=== PATIENT | female | born 1995 | race Caucasian/White ===

== ENCOUNTER 2021-08-30 16:59 | Emergency (ER) | payer OTHER ==
[~2021-08-30] VITALS: Ht 157.5 cm; Wt 109.0 kg
[2021-08-30 18:10] LABS: BASOPHILS % 0.2 % (0.0-2.0); EOSINOPHILS % 1.2 % (0.0-5.0); HEMOGLOBIN. 13.4 g/dL (12.0-16.0); LYMPHOCYTES % 22.8 % (20.0-50.0); MEAN CORPUSCULAR HEMOGLOBIN 28.5 pg (28.0-32.0); MEAN CORPUSCULAR VOLUME 87.1 fL (81.0-99.0); MEAN PLATELET VOLUME 10.8 fl (7.4-10.4); MONOCYTES % 7.9 % (2.0-8.0); NEUTROPHILS % 67.9 % (40.0-76.0); PLATELET 179 x1000/uL (130-400); RED BLOOD CELL COUNT 4.71 mill/uL (4.2-5.4); RED CELL DISTRIBUTION WIDTH 13.9 % (11.6-14.6)
[2021-08-30 18:12] LABS: CHLORIDE 109 mEq/L (98-107)
[2021-08-30 18:40] LABS: B-HCG QUANTITATIVE 70086 mIU/mL (<3)
[2021-08-30] MEDS ORDERED: ONDANSETRON HCL 4MG/2ML INJ IV ONE (19:15)
[2021-08-30] MEDS ORDERED: SODIUM CHLORIDE 0.9% 1,000 ML IV ONE (19:15)
[2021-08-30 20:05] LABS: CLARITY URINE CLEAR (CLEAR); COLOR URINE YELLOW (YELLOW); KETONES URINE TRACE (NEGATIVE); LEUKOCYTE ESTERASE URINE 1+ (NEGATIVE); NITRITE URINE NEGATIVE (NEGATIVE); OCCULT BLOOD URINE NEGATIVE (NEGATIVE); PH URINE 5.5 (4.5-8.0); PROTEIN URINE NEGATIVE (NEGATIVE); SPECIFIC GRAVITY URINE 1.015 (1.005-1.030); UROBILINOGEN URINE 0.2 E.U./dL (0.2-1.0)
[2021-08-30] MEDS ORDERED: ONDA4TAB5 MT (21:43)
[2021-08-30] MEDS ORDERED: NITR-87 MT (21:43)
[2021-08-30 23:38] VITALS: BP 135/77
== END 2021-08-30 23:42 | disposition home or self-care (01) ==
LOC: ER 17:07
DX: O26.891 Other specified pregnancy related conditions, first trimester (principal); O21.0 Mild hyperemesis gravidarum; O23.11 Infections of bladder in pregnancy, first trimester; Z3A.01 Less than 8 weeks gestation of pregnancy
CPT/HCPCS: 36415; 76801; 76817; 80053; 81003; 81025; 83690; 84702; 85025; 96361; 96374; 99284; J2405; J7030; Z7610

== ENCOUNTER 2022-02-25 19:02 | Observation (INO) | payer MEDICAID, OTHER ==
[~2022-02-25] VITALS: Ht 157.5 cm; Wt 104.3 kg
[~2022-02-25 19:02] MED LIST: NITR-87 MT; ONDA4TAB5 MT
[2022-02-25] MEDS ORDERED: LACTATED RINGERS 1,000 ML IV SCH (20:00)
[2022-02-25] MEDS ORDERED: LACTATED RINGERS 1,000 ML IV ONE (20:00)
[2022-02-25 20:01] LABS: CLARITY URINE CLEAR (CLEAR); COLOR URINE DARK YELLOW (YELLOW); KETONES URINE TRACE (NEGATIVE); LEUKOCYTE ESTERASE URINE 1+ (NEGATIVE); NITRITE URINE NEGATIVE (NEGATIVE); OCCULT BLOOD URINE NEGATIVE (NEGATIVE); PH URINE 5.5 (4.5-8.0); PROTEIN URINE TRACE (NEGATIVE); SPECIFIC GRAVITY URINE 1.028 (1.005-1.030)
[2022-02-25] MEDS ORDERED: PREN-176 PO (20:23)
[2022-02-25] MEDS ORDERED: FERR325T6 PO (20:23)
== END 2022-02-25 21:40 | disposition home or self-care (01) ==
LOC: 8 EST LDRP 19:02
PROVIDERS: ADMIT Obstetrics & Gynecology; ATTEND Obstetrics & Gynecology
DX: O26.893 Other specified pregnancy related conditions, third trimester (principal); R10.30 Lower abdominal pain, unspecified; Z3A.33 33 weeks gestation of pregnancy
CPT/HCPCS: 59025; 76805; 76818; 81003; 96360; 96361; G0378; 99281

== ENCOUNTER 2022-04-03 11:43 | Observation (INO) | payer MEDICAID ==
[~2022-04-03] VITALS: Ht 157.5 cm; Wt 124.0 kg
[~2022-04-03 11:43] MED LIST changes: +FERR325T6 PO; -NITR-87 MT; -ONDA4TAB5 MT; +PREN-176 PO
[2022-04-03 11:48] VITALS: BP 136/93
[2022-04-03 13:22] LABS: BASOPHILS % 0.2 % (0.0-2.0); EOSINOPHILS % 0.6 % (0.0-5.0); HEMATOCRIT. 39.5 % (36.0-48.0); HEMOGLOBIN. 13.2 g/dL (12.0-16.0); LYMPHOCYTES % 23.5 % (20.0-50.0); MEAN CORPUSCULAR HEMOGLOBIN 28.7 pg (28.0-32.0); MEAN CORPUSCULAR VOLUME 86.1 fL (81.0-99.0); MEAN PLATELET VOLUME 11.1 fl (7.4-10.4); MONOCYTES % 5.7 % (2.0-8.0); PLATELET 142 x1000/uL (130-400); RED BLOOD CELL COUNT 4.58 mill/uL (4.2-5.4)
[2022-04-03 16:08] LABS: CHLORIDE 107 mEq/L (98-107)
[2022-04-03 16:33] LABS: B-HCG QUANTITATIVE 21009 mIU/mL (<3)
== END 2022-04-03 14:30 | disposition home or self-care (01) ==
LOC: ER 11:51 → 8 EST LDRP 13:25
PROVIDERS: ADMIT Obstetrics & Gynecology; ATTEND Obstetrics & Gynecology
DX: O62.9 Abnormality of forces of labor, unspecified (principal); O42.92 Full-term premature rupture of membranes, unspecified as to length of time between rupture and onset of labor; Z3A.39 39 weeks gestation of pregnancy; Z79.899 Other long term (current) drug therapy
CPT/HCPCS: 36415; 59025; 76805; 80053; 84702; 85025; 99281; 99284; G0378

== ENCOUNTER 2022-04-09 07:18 | Inpatient (IN) | payer MEDICAID ==
[~2022-04-09] VITALS: Ht 157.5 cm; Wt 114.3 kg
[2022-04-09] MEDS ORDERED: LACTATED RINGERS 1,000 ML IV SCH (08:00)
[2022-04-09] MEDS ORDERED: NALOXONE HCL 0.4 MG/ML 1ML VIAL IM PRN (08:15)
[2022-04-09] MEDS ORDERED: LIDOCAINE HCL 1% 20ML VIAL (Pyxis) INJ INFIL SCH (08:15)
[2022-04-09] MEDS ORDERED: CARBOPROST TROMETHAMINE 250 MCG/ML AMPUL IM PRN (08:15)
[2022-04-09] MEDS ORDERED: METHYLERGONOVINE MALEATE 0.2 MG/ML IM PRN (08:15)
[2022-04-09] MEDS ORDERED: PENICILLIN G POTASSIUM 5 MMU in DEXT 5% WATER 100 ML IV SCH (08:30)
[2022-04-09] MEDS: MISOPROSTOL 100MCG TABLET VG SCH ×3 (09:57→23:28)
[2022-04-09 10:23] LABS: BASOPHILS % 0.2 % (0.0-2.0); EOSINOPHILS % 0.4 % (0.0-5.0); HEMATOCRIT. 38.1 % (36.0-48.0); HEMOGLOBIN. 12.5 g/dL (12.0-16.0); LYMPHOCYTES % 24.8 % (20.0-50.0); MEAN CORPUSCULAR VOLUME 85.2 fL (81.0-99.0); MEAN PLATELET VOLUME 11.4 fl (7.4-10.4); MONOCYTES % 6.3 % (2.0-8.0); NEUTROPHILS % 68.3 % (40.0-76.0); PLATELET 144 x1000/uL (130-400); RED BLOOD CELL COUNT 4.47 mill/uL (4.2-5.4); RED CELL DISTRIBUTION WIDTH 16.9 % (11.6-14.6)
[2022-04-09 10:54] LABS: CLARITY URINE CLOUDY (CLEAR); COLOR URINE DARK YELLOW (YELLOW); KETONES URINE 1+ (NEGATIVE); LEUKOCYTE ESTERASE URINE NEGATIVE (NEGATIVE); NITRITE URINE NEGATIVE (NEGATIVE); OCCULT BLOOD URINE NEGATIVE (NEGATIVE); PROTEIN URINE 1+ (NEGATIVE); SPECIFIC GRAVITY URINE 1.025 (1.005-1.030)
[2022-04-09 10:55] LABS: D-DIMER 1.4 mg/L FEU (<0.50); INR 0.9; PARTIAL THROMBOPLASTIN TIME 30.1 sec (23.4-31.0); PROTHROMBIN TIME 9.8 sec (9.6-11.0)
[2022-04-09 11:12] LABS: CHLORIDE 109 mEq/L (98-107)
[2022-04-09 12:57] LABS: *AMPHETAMINES SCREEN URINE NEGATIVE (NEGATIVE); *BARBITURATES SCREEN URINE NEGATIVE (NEGATIVE); *BENZODIAZEPINES SCREEN URINE NEGATIVE (NEGATIVE); *COCAINE SCREEN URINE NEGATIVE (NEGATIVE); CANNABINOID URINE SCREEN NEGATIVE (NEGATIVE); METHADONE URINE SCREEN NEGATIVE (NEGATIVE); OPIATES URINE SCREEN NEGATIVE (NEGATIVE); PHENCYCLIDINE URINE SCREEN NEGATIVE (NEGATIVE)
[2022-04-09] MEDS: LACTATED RINGERS 1,000 ML IV SCH ×4 (14:04→21:52)
[2022-04-09] MEDS ORDERED: ROPIVACAINE HCL/PF EPIDURAL 200 ML EPI NR (15:30)
[2022-04-09] MEDS: OXYTOCIN 30 UNITS/500ML NS PMX 500 ML IV SCH (16:18)
[2022-04-09] MEDS: BUTORPHANOL TARTRATE 2 MG/ML VIAL IV PRN ×2 (17:25→19:41)
[2022-04-09] MEDS: PENICILLIN G POTASSIUM 2.5 MMU in DEXTROSE 5% WATER 50 ML IV SCH ×2 (20:12→23:28)
[2022-04-09] MEDS ORDERED: BUPIVACAINE HCL/PF 0.25% (2.5MG/ML) 10ML ONE (20:41)
[2022-04-09] MEDS ORDERED: ROPIVACAINE HCL/PF EPIDURAL 200 ML EPI ONE (20:41)
[2022-04-09] MEDS ORDERED: FENTANYL CITRATE/PF 50MCG/ML 2ML VIAL ONE (20:41)
[2022-04-10] MEDS ORDERED: ONDANSETRON HCL 4MG/2ML INJ IV ONE (03:15)
[2022-04-10] MEDS: OXYTOCIN 30 UNITS/500ML NS PMX 500 ML IV SCH ×2 (04:13→04:28)
[2022-04-10] MEDS ORDERED: OXYTOCIN 30 UNITS/500ML NS PMX 500 ML IV SCH (04:15)
[2022-04-10] MEDS ORDERED: LANOLIN OINT 7GM TUBE TOP PRN (04:15)
[2022-04-10] MEDS ORDERED: IBUPROFEN 400MG TABLET PO PRN (04:15)
[2022-04-10] MEDS ORDERED: RHO(D) IMMUNE GLOBULIN 300 MCG/SYR IM PRN (04:15)
[2022-04-10] MEDS ORDERED: DIPHENHYDRAMINE 25MG CAPSULE PO PRN (04:15)
[2022-04-10] MEDS: IBUPROFEN 800MG TABLET PO PRN ×2 (05:19→20:20)
[2022-04-10 05:55] VITALS: BP 121/68
[2022-04-10 08:00] VITALS: BP 115/62
[2022-04-10] MEDS: PRENATAL VIT/FE FUMARATE/FA TABLET PO SCH (15:02)
[2022-04-10 16:00] VITALS: BP 113/68
[2022-04-10 20:00] VITALS: BP 113/64
[2022-04-11 04:00] VITALS: BP 109/58
[2022-04-11 08:00] VITALS: BP 131/87
[2022-04-11 08:05] LABS: BASOPHILS % 0.3 % (0.0-2.0); EOSINOPHILS % 0.4 % (0.0-5.0); HEMATOCRIT. 28.7 % (36.0-48.0); HEMOGLOBIN. 9.4 g/dL (12.0-16.0); LYMPHOCYTES % 26.8 % (20.0-50.0); MEAN CORPUSCULAR HEMOGLOBIN 28.3 pg (28.0-32.0); MEAN CORPUSCULAR VOLUME 86.8 fL (81.0-99.0); MEAN PLATELET VOLUME 11.4 fl (7.4-10.4); MONOCYTES % 5.6 % (2.0-8.0); NEUTROPHILS % 66.9 % (40.0-76.0); PLATELET 135 x1000/uL (130-400); RED BLOOD CELL COUNT 3.31 mill/uL (4.2-5.4); RED CELL DISTRIBUTION WIDTH 17.3 % (11.6-14.6)
[2022-04-11] MEDS ORDERED: NORE0.3520 MT (08:40)
[2022-04-11] MEDS ORDERED: IBUP-2030 PO (08:40)
[2022-04-11] MEDS: PRENATAL VIT/FE FUMARATE/FA TABLET PO SCH (08:45)
[2022-04-11 14:15] LABS: HEPATITIS B SURFACE ANTIGEN NEGATIVE
== END 2022-04-11 11:45 | disposition home or self-care (01) | DRG 560 ==
LOC: 8 EST LDRP 07:18 → OBSVTOIN 07:55 → 8EST 04-10 05:18
PROVIDERS: ADMIT Obstetrics & Gynecology; ATTEND Obstetrics & Gynecology
PROC: 10E0XZZ Delivery of Products of Conception, External Approach (ICD-10-PCS; principal; 2022-04-10)
PROC: 3E0R3BZ Introduction of Anesthetic Agent into Spinal Canal, Percutaneous Approach (ICD-10-PCS; 2022-04-10)
PROC: 00HU33Z Insertion of Infusion Device into Spinal Canal, Percutaneous Approach (ICD-10-PCS; 2022-04-10)
DX: O99.02 Anemia complicating childbirth (principal); Z37.0 Single live birth; Z20.822 Contact with and (suspected) exposure to COVID-19; Z3A.39 39 weeks gestation of pregnancy
CPT/HCPCS: 36415; 80053; 80305; 81003; 84550; 85025; 85379; 85384; 86592; 86703; 86762; 86850; 86900; 87340; 87426; 99281; G0378; J0595; J2540; J2795; J3010; J3490; J7060; J7120; A4315; J2590

== ENCOUNTER 2022-05-02 13:32 | Emergency (ER) | payer MEDICAID ==
[~2022-05-02] VITALS: Ht 157.5 cm; Wt 92.0 kg
[~2022-05-02 13:32] MED LIST changes: +IBUP-2030 PO; +NORE0.3520 MT
[2022-05-02 13:47] VITALS: BP 154/97
[2022-05-02 15:34] LABS: BASOPHILS % 0.5 % (0.0-2.0); EOSINOPHILS % 1.6 % (0.0-5.0); HEMATOCRIT. 34.3 % (36.0-48.0); HEMOGLOBIN. 11.3 g/dL (12.0-16.0); LYMPHOCYTES % 26.9 % (20.0-50.0); MEAN CORPUSCULAR HEMOGLOBIN 27.7 pg (28.0-32.0); MEAN CORPUSCULAR VOLUME 84.1 fL (81.0-99.0); MEAN PLATELET VOLUME 11.5 fl (7.4-10.4); MONOCYTES % 6.7 % (2.0-8.0); NEUTROPHILS % 64.3 % (40.0-76.0); PLATELET 177 x1000/uL (130-400); RED BLOOD CELL COUNT 4.08 mill/uL (4.2-5.4); RED CELL DISTRIBUTION WIDTH 15.8 % (11.6-14.6)
[2022-05-02 15:47] LABS: CHLORIDE 108 mEq/L (98-107)
[2022-05-02 15:57] LABS: B-HCG QUANTITATIVE 3 mIU/mL (<3)
[2022-05-02 16:30] LABS: CLARITY URINE CLOUDY (CLEAR); COLOR URINE RED (YELLOW); KETONES URINE NEGATIVE (NEGATIVE); LEUKOCYTE ESTERASE URINE 2+ (NEGATIVE); NITRITE URINE NEGATIVE (NEGATIVE); OCCULT BLOOD URINE 3+ (NEGATIVE); PROTEIN URINE 1+ (NEGATIVE); SPECIFIC GRAVITY URINE 1.015 (1.005-1.030); UROBILINOGEN URINE 0.2 E.U./dL (0.2-1.0)
[2022-05-02] MEDS ORDERED: MISOPROSTOL 200MCG TABLET PO ONE (17:15)
[2022-05-02] MEDS ORDERED: NITR-87 MT (18:07)
== END 2022-05-02 18:21 | disposition home or self-care (01) ==
LOC: ER 13:32
DX: O72.1 Other immediate postpartum hemorrhage (principal); N39.0 Urinary tract infection, site not specified; D64.9 Anemia, unspecified
CPT/HCPCS: 36415; 76830; 76856; 80053; 81003; 81025; 84702; 85025; 86850; 86900; 99284

== ENCOUNTER 2024-01-22 23:14 | Emergency (ER) | payer MEDICAID ==
[~2024-01-22] VITALS: Ht 157.5 cm; Wt 91.0 kg
[~2024-01-22 23:14] MED LIST changes: +NITR-87 MT
[2024-01-22 23:16] VITALS: O2SAT 100
[2024-01-23] VITALS: TEMP 36.89184
[2024-01-23] MEDS: ONDANSETRON HCL 4MG/2ML INJ IV STA (00:19)
[2024-01-23] MEDS: MORPHINE SULFATE 4 MG/ML INJ (FOR IV/IM USE) IV STA (00:20)
[2024-01-23] MEDS ORDERED: NAPR-1176 MT (01:59)
[2024-01-23 02:59] VITALS: BP 124/61; PULSE 90; RESP 18; O2SAT 99
== END 2024-01-23 03:02 | disposition home or self-care (01) ==
LOC: ER 23:14
DX: S93.402A Sprain of unspecified ligament of left ankle, initial encounter (principal); Z79.899 Other long term (current) drug therapy; W18.42XS Slipping, tripping and stumbling without falling due to stepping into hole or opening, sequela; Y93.89 Activity, other specified; Y92.89 Other specified places as the place of occurrence of the external cause; Y99.8 Other external cause status
CPT/HCPCS: 73590; 73600; 99285; 96374; 96375; J2405; J2270; Z7610 ×2; 99284

== ENCOUNTER 2024-11-26 10:11 | Emergency (ER) | payer MEDICAID, OTHER ==
[~2024-11-26] VITALS: Ht 157.5 cm; Wt 113.3 kg
[~2024-11-26 10:11] MED LIST changes: +NAPR-1176 MT
[2024-11-26 10:17] VITALS: O2SAT 98
[2024-11-26 10:46] LABS: BASOPHILS % 0.2 % (0.0-2.0); EOSINOPHILS % 2.0 % (0.0-5.0); HEMATOCRIT. 41.4 % (36.0-48.0); HEMOGLOBIN. 13.6 g/dL (12.0-16.0); LYMPHOCYTES % 22.5 % (20.0-50.0); MEAN PLATELET VOLUME 11.1 fl (7.4-10.4); MONOCYTES % 5.8 % (2.0-8.0); NEUTROPHILS % 69.5 % (40.0-76.0); PLATELET 171 x1000/uL (130-400); RED BLOOD CELL COUNT 4.83 mill/uL (4.2-5.4); RED CELL DISTRIBUTION WIDTH 14.1 % (11.6-14.6)
[2024-11-26 10:58] LABS: CREATININE 0.6 mg/dL (0.6-1.0)
[2024-11-26 10:59] LABS: HCG SCREEN NEGATIVE; UREA NITROGEN BLOOD 8 mg/dL (9-23)
[2024-11-26 11:00] LABS: ASPARTATE AMINOTRANSFERASE 35 IU/L (<34)
[2024-11-26 11:01] LABS: BILIRUBIN DIRECT 0.1 mg/dL (<=3.0); BILIRUBIN TOTAL 0.5 mg/dL (0.1-1.0); PROTEIN TOTAL 7.2 g/dL (6.0-8.3)
[2024-11-26] MEDS: ONDANSETRON HCL 4MG/2ML INJ IV ONE (11:22)
[2024-11-26] MEDS: SODIUM CHLORIDE 0.9% 1,000 ML IV ONE (11:22)
[2024-11-26 12:12] VITALS: TEMP 36.8
[2024-11-26 12:38] LABS: CLARITY URINE CLEAR (CLEAR); COLOR URINE YELLOW (YELLOW); GLUCOSE URINE NEGATIVE (NEGATIVE); KETONES URINE NEGATIVE (NEGATIVE); LEUKOCYTE ESTERASE URINE TRACE (NEGATIVE); NITRITE URINE NEGATIVE (NEGATIVE); OCCULT BLOOD URINE NEGATIVE (NEGATIVE); PH URINE 6.5 (4.5-8.0); PROTEIN URINE NEGATIVE (NEGATIVE); SPECIFIC GRAVITY URINE 1.002 (1.005-1.030); UROBILINOGEN URINE 0.2 E.U./dL (0.2-1.0)
[2024-11-26 13:12] LABS: SQUAMOUS EPITHELIAL CELL URINE 1+ /lpf (RARE/1+); WBC URINE 0-2 /hpf (0-2)
[2024-11-26 13:13] LABS: BACTERIA URINE TRACE; RBC URINE NONE SEEN /hpf (0-2)
[2024-11-26] MEDS ORDERED: ONDA-239 PO (13:25)
[2024-11-26 13:35] VITALS: BP 118/77; PULSE 89; RESP 16; O2SAT 97
== END 2024-11-26 13:40 | disposition home or self-care (01) ==
LOC: ER 10:11
DX: R11.2 Nausea with vomiting, unspecified (principal); R19.7 Diarrhea, unspecified; Z79.899 Other long term (current) drug therapy
CPT/HCPCS: 80076; 80048; 81003; 84703; 83690; 85025; 36415; 96361; 96374; 99283; J2405; J7030; Z7610 ×3